=== PATIENT | female | born 1930 | race Caucasian/White ===

== ENCOUNTER → 2016-12-19 | Outpatient (CLI) | payer OTHER ==
[~2016-12-19] MED LIST: IOPAMIDOL (ISOVUE-300) 100 ML BTL ONE
== END ==
LOC: FIMAGING 10:31
PROVIDERS: ATTEND Physician Assistant
DX: R35.1 Nocturia (principal); R31.9 Hematuria, unspecified; R10.2 Pelvic and perineal pain
CPT/HCPCS: 74178; Q9967

== ENCOUNTER → 2017-07-28 | Outpatient (CLI) | payer OTHER | LOC: FIMAGING 13:47 | PROVIDERS: ATTEND Internal Medicine | DX: R22.1 Localized swelling, mass and lump, neck (principal); E89.0 Postprocedural hypothyroidism ==

== ENCOUNTER 2018-05-12 09:11 | Emergency (ER) | payer OTHER ==
--- NOTE | 2018-05-12 09:25 | EDPHY ---
H & P Stated Complaint: Diarrhea x 5 days, started after 2 doses augmentin given for bronchitis Time Seen by Provider: 05/12/18 09:25 - Personal History Tetanus Vaccine Date: UNSURE - Medical/Surgical History Hx Asthma: No Hx Chronic Respiratory Disease: No Hx Diabetes: No Hx Cardiac Disease: No Hx Renal Disease: No Hx Cirrhosis: No Hx Alcoholism: No Hx HIV/AIDS: No Hx Splenectomy or Spleen Trauma: No Other PMH: hyperparathyroidism, thyroidectomy, PTH, multiple tumors (abd,vocal cords, breast,groin, liver) liver resection, breast CA, hysterectomy, appendectomy, cholecytectomy - Social History Smoking Status: Former smoker Constitutional: Initial Vital Signs Temperature (C) 36.8 C 05/12/18 09:17 Heart Rate 83 05/12/18 09:17 Respiratory Rate 18 05/12/18 09:17 Blood Pressure 138/89 H 05/12/18 09:17 O2 Sat (%) 93 05/12/18 09:17 O2 Delivery Mode Room Air Allergies/Adverse Reactions: No Known Allergies Allergy (Unverified 07/09/11 14:54) Home Medications: Medication Instructions Recorded Levothyroxine Sodium 05/12/18 Vancomycin [Vancomycin (*)] 125 mg PO Q6 #60 cap 05/12/18 Medical Decision Making ED Course/Re-evaluation: CHIEF COMPLAINT: Diarrhea x 5 days HISTORY OF PRESENT ILLNESS: The patient is an 88 y/o female arriving with her family member complaining of diarrhea for the last 5 days after starting Augmentin for bronchitis. She took two doses of Augmentin and within 24 hours developed diarrhea. She estimates at least 10 episodes of diarrhea daily and is using diapers at home. She denies abdominal pain. No vomiting or blood in her stool. She has no known history of c.difficile infections. REVIEW OF SYSTEMS: A comprehensive 10 system review of systems is otherwise negative aside from elements mentioned in the history of present illness and medical decision making. PHYSICAL EXAM: HR, BP, O2 Sat, RR. Temp noted General Appearance: Alert, well hydrated, appropriate, and non-toxic appearing. Head: Atraumatic without scalp tenderness or obvious injury Eyes: Pupils equal, round, reactive to light and accommodation, EOMI, no trauma , no injection. Nose: Atraumatic, no rhinorrhea, clear. Throat: Mucus membranes moist. Neck: Supple, nontender, no lymphadenopathy. Respiratory: No retractions, no distress, no wheezes, and no accessory muscle use. Lungs are clear to auscultation bilaterally. Cardiovascular: Regular rate and rhythm, no murmurs, rubs, or gallops. Good capillary refill all extremities. Gastrointestinal: Abdomen is soft, nontender, non-distended, no masses, no rebound, no guarding, no peritoneal signs. Musculoskeletal: Normal active ROM of all extremities, atraumatic. Neurological: Alert, appropriate, and interactive. The patient has non-focal cranial nerves, motor, sensory, and cerebellar exam. Skin: No rashes, good turgor, no nodules on palpation. Past medical history: hyperparathyroidism, multiple tumors (abd,vocal cords, breast,groin, liver), breast CA Past surgical history: Thyroidectomy, liver resection, hysterectomy, appendectomy, cholecystectomy Family history: Noncontributory Social history: Family member at bedside. Lives at independent living facility in [place]. Originally from [place]. DIFFERENTIAL DIAGNOSIS: The differential diagnosis for the patient's symptoms included but was not limited to c.difficile infection following antibiotic use, gastroenteritis, gastritis, appendicitis, and medication side effect. MEDICAL DECISION MAKING: This is an 88 y/o female who presents with a 5-day history of persistent diarrhea following antibiotic use for bronchitis. Her abdomen is benign. Doubt surgical process. Presentation most concerning for c.difficile infection related to recent antibiotic use. Plan for IV, ISTAT, GI pathogen panel, 1L IV NS. ISTAT normal. Patient has been unable to provide a stool sample here and would prefer to go home and return with a stool sample later when she is able to provide one. I have written a script for vancomycin in case her lab results come back positive for c.difficile. Otherwise, we have discussed supportive care and follow up instructions. She is comfortable with this plan. Return precautions discussed. - Data Points Laboratory Results: 05/12/18 09:39 POC Hgb 15.0 gm/dL gm/dL (12.6-16.3) POC Hct 44 % % (38-47) POC Sodium 143 mEq/L mEq/L (135-145) POC Potassium 3.5 mEq/L mEq/L (3.3-5.0) POC Chloride 108 mEq/L mEq/L (97-110) POC BUN 9 mg/dL mg/dL (7-23) POC Creatinine 0.9 mg/dL mg/dL (0.6-1.0) POC Glucose 107 mg/dL H mg/dL (70-100) Medications Given: Discontinued Medications Sodium Chloride (Ns) 1,000 mls @ 0 mls/hr IV EDNOW ONE; Wide Open PRN Reason: Protocol Stop: 05/12/18 09:36 Last Admin: 05/12/18 09:44 Dose: 1,000 mls Point of Care Test Results: Chemistry 05/12/18 09:39 POC Sodium 143 mEq/L mEq/L (135-145) POC Potassium 3.5 mEq/L mEq/L (3.3-5.0) POC Chloride 108 mEq/L mEq/L (97-110) POC BUN 9 mg/dL mg/dL (7-23) POC Creatinine 0.9 mg/dL mg/dL (0.6-1.0) POC Glucose 107 mg/dL H mg/dL (70-100) ISTAT H&H 05/12/18 09:39 POC Hgb 15.0 gm/dL gm/dL (12.6-16.3) POC Hct 44 % % (38-47) Departure - Departure Disposition: Home, Routine, Self-Care Clinical Impression: Dehydration Diarrhea Qualifiers: Diarrhea type: unspecified type Qualified Code(s): R19.7 - Diarrhea, unspecified Condition: Good Instructions: Dehydration (ED), Acute Diarrhea (ED) Additional Instructions: 1. Please bring stool sample back to the lab for evaluation as soon as you are able to. 2. Once your stool has been analyzed, call back to find out results. If positive for c.difficile fill antibiotic prescription and take as directed. 3. If negative for c.difficile, continue supportive care as discussed. 4. Follow up with your primary care provider for unimproved symptoms over the next few days. 5. Practice good hand hygiene and clean surfaces at home with bleach to prevent spread of possible infection to others. 6. Return to the ED for worsening of condition. Referrals: Yuli Rodriguez MD [Primary Care Provider] - As per Instructions Prescriptions: Vancomycin [Vancomycin (*)] 125 mg PO Q6 #60 cap Report Scribed for: Shahid Tapia Report Scribed by: Chetna Arthur Date of Report: 05/12/18 Time of Report: 09:26
[2018-05-12] MEDS ORDERED: NS 1,000 ML IV ONE (09:35)
[2018-05-12 11:46] VITALS: BP 153/86
== END 2018-05-12 11:45 | disposition home or self-care (01) ==
DX: R19.7 Diarrhea, unspecified (principal); E86.0 Dehydration; Z87.891 Personal history of nicotine dependence
CPT/HCPCS: 82435-PO; 82565-PO; 82947-PO; 84132-PO; 84295-PO; 84520-PO; 85014-ER